=== PATIENT | female | born 1955 | race Caucasian/White ===

== ENCOUNTER 2016-11-26 14:05 | Emergency (ER) | payer OTHER, MEDICARE ==
[2016-11-26 16:26] LABS: HEMOGLOBIN 13.7 gm/dl (12.3-15.3); RED BLOOD COUNT 4.73 M/UL (4.00-5.10); WHITE BLOOD COUNT 9.1 K/UL (4.5-11.0)
[2016-11-26 16:42] LABS: BUN/CREATININE RATIO 23 (0-10)
== END 2016-11-26 19:30 | disposition home or self-care (01) ==
LOC: ER1 14:05
PROVIDERS: Physician Assistant
DX: S20.212A Contusion of left front wall of thorax, initial encounter (principal); R91.1 Solitary pulmonary nodule; Z88.1 Allergy status to other antibiotic agents; V43.62XA Car passenger injured in collision with other type car in traffic accident, initial encounter; Y92.410 Unspecified street and highway as the place of occurrence of the external cause
CPT/HCPCS: 36415; 71260; 80053; 81001; 83690; 85025; 87086; 96360; 99284; J7050; Q9962

== ENCOUNTER → 2017-04-18 | Outpatient (CLI) | payer MEDICARE | LOC: MAMO 04-10 08:40 | DX: Z12.31 Encounter for screening mammogram for malignant neoplasm of breast (principal); Z80.3 Family history of malignant neoplasm of breast | CPT/HCPCS: G0202 ==

== ENCOUNTER → 2021-02-11 | Outpatient (CLI) | payer MEDICARE ==
[~2021-02-11] MED LIST: CELEBREX200 MG PO; COMBIVENT0.074 GM/I INH; FISH OIL 1,0001 EACH PO; FLEXERIL 10 MG10 MG PO; FLONASE 0.05% N16 GM; FOLIC ACID 1 MG1 MG PO; FOLIC ACID0.4 MG PO; METHOTREXATE2.5 MG PO; MULTIVITAMINS1 EAC1 PO; PREDNISONE10 MG PO; PREDNISONE5 MG PO; RITUXIMAB IV; SINGULAIR10 MG PO; SPIRIVA HANDIH18 MCG INH; SYNTHROID150 MCG PO; VITAMIN D350 MC1 PO; ZYRTEC10 M3 PO
[2021-02-11 09:17] LABS: BUN/CREATININE RATIO 28 (0-10)
== END ==
LOC: LAB 07:40
PROVIDERS: Nurse Practitioner Family
DX: Z13.1 Encounter for screening for diabetes mellitus (principal); R53.83 Other fatigue; E55.9 Vitamin D deficiency, unspecified; I10 Essential (primary) hypertension; E03.9 Hypothyroidism, unspecified
CPT/HCPCS: 36415; 80048; 80061; 82652; 84439; 84443

== ENCOUNTER → 2021-02-25 | Outpatient (CLI) | payer MEDICARE | LOC: KOH-I 12:47 | DX: R42 Dizziness and giddiness (principal); R90.89 Other abnormal findings on diagnostic imaging of central nervous system | CPT/HCPCS: 70551 ==

== ENCOUNTER → 2022-04-13 | Outpatient (CLI) | payer MEDICARE | LOC: EXRD 09:58 | DX: R06.02 Shortness of breath (principal); Z86.16 Personal history of COVID-19 | CPT/HCPCS: 71046 ==